=== PATIENT | male | born 1965 | race Caucasian/White ===

== ENCOUNTER 2018-06-19 19:25 | Emergency (ER) | payer MEDICAID ==
[~2018-06-19] VITALS: Ht 180.3 cm; Wt 88.5 kg
[~2018-06-19 19:25] MED LIST: ADV50250 IH; ALBU18HF2 INH; ALBU6.7H INH; ALBU8.5H4 IH; ALBU8.5H8 INH; ALBU8HFA PO; CETI1TAB PO; CHLO25CA10 PO; CLON-528 PO; DIAZ-351 PO; DIAZ2TAB PO; FLUT16SP26 BOTHNARES; GABA-532 PO; GABA100C PO; GABA300C PO; GABA400C PO; IBUP-1986 PO; NAPR-700 PO; PANT-47 PO; PRED50TA PO; TRAM50TA2 PO; [UNRECOGNIZED DRUG - CODE] TP
[2018-06-19 19:44] VITALS: BP 136/94
== END 2018-06-19 20:52 | disposition left against medical advice (07) ==
LOC: ER 19:26
DX: R06.02 Shortness of breath (principal); Z53.21 Procedure and treatment not carried out due to patient leaving prior to being seen by health care provider

== ENCOUNTER 2020-10-23 14:20 | Emergency (ER) | payer MEDICAID ==
[~2020-10-23] VITALS: Ht 180.3 cm; Wt 86.4 kg
[~2020-10-23 14:20] MED LIST changes: -ALBU6.7H INH; +ALBU6.7H9 INH
[2020-10-23] MEDS ORDERED: ALBU8HFA PO (15:36)
[2020-10-23] MEDS ORDERED: PERM60CR19 TOP (15:36)
== END 2020-10-23 15:45 | disposition home or self-care (01) ==
LOC: ER 14:21
DX: B86 Scabies (principal); J44.9 Chronic obstructive pulmonary disease, unspecified; K21.9 Gastro-esophageal reflux disease without esophagitis; G89.29 Other chronic pain; F12.90 Cannabis use, unspecified, uncomplicated; F15.90 Other stimulant use, unspecified, uncomplicated; Z86.19 Personal history of other infectious and parasitic diseases; Z86.14 Personal history of Methicillin resistant Staphylococcus aureus infection; Z86.61 Personal history of infections of the central nervous system; Z85.9 Personal history of malignant neoplasm, unspecified; Z56.0 Unemployment, unspecified; Z59.0 Homelessness; Z72.89 Other problems related to lifestyle; Z88.0 Allergy status to penicillin; Z88.8 Allergy status to other drugs, medicaments and biological substances; Z79.899 Other long term (current) drug therapy
CPT/HCPCS: 99283

== ENCOUNTER 2020-12-24 08:23 | Emergency (ER) | payer MEDICAID ==
[~2020-12-24] VITALS: Ht 180.3 cm; Wt 90.9 kg
[2020-12-24 08:30] VITALS: BP 134/84
[2020-12-24] MEDS ORDERED: CLIN300C63 PO (08:51)
== END 2020-12-24 09:00 | disposition home or self-care (01) ==
LOC: ER 08:24
DX: K04.7 Periapical abscess without sinus (principal); K02.9 Dental caries, unspecified; J44.9 Chronic obstructive pulmonary disease, unspecified; K21.9 Gastro-esophageal reflux disease without esophagitis; J45.909 Unspecified asthma, uncomplicated; G89.29 Other chronic pain; F10.10 Alcohol abuse, uncomplicated; F41.9 Anxiety disorder, unspecified; F12.90 Cannabis use, unspecified, uncomplicated; F15.90 Other stimulant use, unspecified, uncomplicated; Z86.14 Personal history of Methicillin resistant Staphylococcus aureus infection; Z86.19 Personal history of other infectious and parasitic diseases; Z86.69 Personal history of other diseases of the nervous system and sense organs; Z59.0 Homelessness; Z56.0 Unemployment, unspecified; Z98.890 Other specified postprocedural states; Z88.1 Allergy status to other antibiotic agents; Z88.8 Allergy status to other drugs, medicaments and biological substances; Z79.899 Other long term (current) drug therapy; Y90.9 Presence of alcohol in blood, level not specified
CPT/HCPCS: 99283

== ENCOUNTER 2020-12-26 07:01 | Emergency (ER) | payer MEDICAID ==
[~2020-12-26] VITALS: Ht 180.3 cm; Wt 100.0 kg
[~2020-12-26 07:01] MED LIST changes: +CLIN300C63 PO
[2020-12-26 07:02] VITALS: BP 176/112
== END 2020-12-26 09:23 | disposition left against medical advice (07) ==
LOC: ER 07:01
DX: K08.89 Other specified disorders of teeth and supporting structures (principal); Z53.21 Procedure and treatment not carried out due to patient leaving prior to being seen by health care provider

== ENCOUNTER 2021-04-09 06:53 | Emergency (ER) | payer MEDICAID ==
[~2021-04-09] VITALS: Ht 172.7 cm; Wt 100.0 kg
[~2021-04-09 06:53] MED LIST changes: +ALBU8.5H17 INH; -ALBU8.5H8 INH; -CLIN300C63 PO
[2021-04-09 07:05] VITALS: BP 125/80
== END 2021-04-09 10:26 | disposition left against medical advice (07) ==
LOC: ER 06:54
DX: Z76.0 Encounter for issue of repeat prescription (principal); Z53.21 Procedure and treatment not carried out due to patient leaving prior to being seen by health care provider

== ENCOUNTER → 2021-04-17 | Emergency (ER) | payer MEDICAID ==
[~2021-04-17] VITALS: Ht 180.3 cm; Wt 88.6 kg
[2021-04-17 05:16] VITALS: BP 165/105
== END | disposition left against medical advice (07) ==
LOC: ER 05:08
DX: R06.02 Shortness of breath (principal); Z53.21 Procedure and treatment not carried out due to patient leaving prior to being seen by health care provider